=== PATIENT | male | born 1955 | race Caucasian/White ===

== ENCOUNTER 2016-07-31 08:22 | Day surgery (SDC) | payer OTHER ==
[2016-07-20 13:51] VITALS: BMI 39.0
--- NOTE | 2016-07-20 14:35 | PAT Medication Instructions ---
Service Date Jul 20, 2016. Current Home Medication List Aspirin (Aspirin Ec), 81 MG PO HS Ibuprofen (Ibuprofen), 600 MG PO Q6 PRN for Pain Lisinopril (Zestril), 20 MG PO QAM Simvastatin (Zocor), 20 MG PO QPM Medication Instructions For Your Scheduled Surgery - Hold the following medications 7-10 days prior to surgery per surgeon instructions: Aspirin (Aspirin Ec), 81 MG PO HS Ibuprofen (Ibuprofen), 600 MG PO Q6 PRN for Pain - Hold the following medications the morning of surgery: Lisinopril (Zestril), 20 MG PO QAM - Take the following medications as scheduled the night before surgery: Simvastatin (Zocor), 20 MG PO QPM If you have any questions please call us at [phone] or [phone] ( Rajwinder) or [phone]
--- NOTE | 2016-07-20 15:13 | DIAGNOSTIC IMAGING REPORT ---
TWO VIEW CHEST CLINICAL HISTORY: Preoperative examination. FINDINGS: PA and lateral chest radiographs are obtained. No prior studies are available for comparison at the time of dictation. The cardiomediastinal silhouette is unremarkable. Nonspecific interstitial thickening is identified. There is no airspace consolidation or pleural effusion. There is no pneumothorax. The skeletal structures appear osteopenic. The bony thorax appears intact. IMPRESSION: No active disease in the chest. Electronically signed by: Bayron Santiago M.D. 07/20/2016 3:11 PM Dictated Date/Time: 07/20/2016 3:11 PM
[2016-07-20 15:34] LABS: BASO % 0.5 %; BASO ABS # 0.05 K/uL (0-0.2); COMPLETE YES; EOS % 1.5 %; HEMATOCRIT 44.7 % (42-52); IG% 0.4 %; LYMPH % 35.6 %; LYMPH ABS # 3.42 K/uL (1.2-3.4); MEAN CELL VOLUME 85.3 fL (80-100); MEAN CORPUSCULAR HEMOGLOBIN 30.7 pg (25-34); MEAN PLATELET VOLUME 9.2 fL (7.4-10.4); MONO % 5.9 %; NEUT % 56.1 %; PLATELET COUNT 241 K/uL (130-400); RED BLOOD COUNT 5.24 M/uL (4.7-6.1); WHITE BLOOD COUNT 9.62 K/uL (4.8-10.8)
[2016-07-20 16:27] LABS: URINE APPEARANCE CLEAR (CLEAR); URINE BILIRUBIN NEG (NEG); URINE COLOR YELLOW; URINE NITRITE NEG (NEG); URINE PH 5.5 (4.5-7.5); UROBILINOGEN NEG (NEG)
[2016-07-20 16:28] LABS: MANUAL MICROSCOPIC REQUIRED? NO; REVIEW REQ? NO
[2016-07-20 16:45] LABS: BUN/CREATININE RATIO 10.6 (10-20); CALCIUM 9.6 mg/dl (8.5-10.1); CREATININE 0.97 mg/dl (0.60-1.40); POTASSIUM 4.4 mmol/L (3.5-5.1)
[~2016-07-31] VITALS: Ht 182.9 cm; Wt 132.3 kg
[~2016-07-31 08:22] MED LIST: ASPI81TA28 PO; CEFAZOLIN 3000 MG/65 ML D5W IV SCH; LACTATED RINGER'S 1000ML 1,000 ML IV SCH; LISI-725 PO; MTR/600 PO; SIMV20TA2 PO
[2016-07-31 08:51] VITALS: BP 164/76; PULSE 95; TEMP 37.2; O2SAT 96; Ht 182.9 cm; Wt 132.3 kg
[2016-07-31] MEDS ORDERED: LIDOCAINE HCL 2% 2 ML VIAL (20MG/ML) ONE (09:55)
[2016-07-31] MEDS ORDERED: MIDAZOLAM HCL 1 MG/ML 2ML VIAL ONE (09:55)
[2016-07-31] MEDS ORDERED: PROPOFOL IV EMULSION 10 MG/ML 20 ML VIAL IV ONE (09:55)
[2016-07-31] MEDS ORDERED: FENTANYL CITRATE INJ 50 MCG/1 ML 2 ML VIAL ONE ×2 (09:55→10:33)
--- NOTE | 2016-07-31 10:38 | History & Physical Bridge Note ---
H&P Re-Evaluation Bridge Note: I have examined the patient, reviewed the History & Physical and in the interval since the performance of the History & Physical I have noted the following changes of clinical significance: No changes noted
[2016-07-31] MEDS ORDERED: LIDOCAINE HCL 1% 20 ML VIAL ONE (11:05)
[2016-07-31] MEDS ORDERED: ONDANSETRON INJ 2 MG/ML 2 ML VIAL ONE (11:15)
[2016-07-31] MEDS ORDERED: DEXAMETHASONE SOD INJ 4 MG/ML VIAL ONE (11:15)
--- NOTE | 2016-07-31 12:11 | [facility] Post Operative Brief Note ---
Immediate Operative Summary Operative Date Jul 31, 2016. Pre-Operative Diagnosis phimosis Post-Operative Diagnosis phimosis Procedure(s) Performed Circumcision Surgeon Dr. Maxwell [employer] Operator Surgeon(s) none Estimated Blood Loss 3 ML Findings phimosis Specimens A: foreskin Drains none Anesthesia general Complication(s) None Disposition Recovery Room / PACU
[2016-07-31] MEDS ORDERED: OXYC-57 PO (12:12)
--- NOTE | 2016-07-31 12:13 | Discharge Instructions ---
Discharge Instructions Date of Service Jul 31, 2016. Visit Reason for Visit: Phimosis Discharge Discharge Diagnosis / Problem: phimosis Discharge Goals Goal(s): Therapeutic intervention Activity Recommendations Activity Limitations: resume your previous activity (take it easy today) Shower/Bathe: tomorrow Anesthesia . Post Anesthesia Instructions: If you have had General Anesthesia or IV Sedation: * Do not drive today. * Resume driving when surgeon permits. * Do not make important decisions or sign legal documents today. * Call surgeon for: 1. Temperature elevations greater than 101 degrees F. 2. Uncontrollable pain. 3. Excessive bleeding. 4. Persistent nausea and vomiting. 5. Medication intolerance (nausea, vomiting or rash). * For nausea and vomiting use only clear liquids such as: tea, soda, bouillon until nausea subsides, then gradually increase diet as tolerated. * If you have any concerns or questions, call your surgeon's office. If physician is unavailable and it is an emergency, call 911 or go to the nearest emergency room. . Diet Recommendations Recommended Home Diet: resume previous diet Procedures Procedures Performed: Circumcision Pending Studies Studies pending at discharge: no Medical Emergencies . Who to Call and When: Medical Emergencies: If at any time you feel your situation is an emergency, please call 911 immediately. . Non-Emergent Contact Non-Emergency issues call your: Urologist . . "Provider Documentation" section prepared by Pj Maxwell. [place] Drug Monitoring Program Search Results: patient reviewed within database
[2016-07-31] MEDS ORDERED: HYDROmorphone INJ 1 MG/ML SYR ONE ×2 (12:26→12:36)
[2016-07-31] MEDS ORDERED: FLUMAZENIL 0.1 MG/1 ML 10 ML VIAL IV PRN (12:30)
[2016-07-31] MEDS ORDERED: ONDANSETRON INJ 2 MG/ML 2 ML VIAL IV PRN (12:30)
[2016-07-31] MEDS ORDERED: NALOXONE HCL 0.4 MG/1 ML VIAL/CARP IV PRN (12:30)
[2016-07-31] MEDS ORDERED: ATROPINE SULFATE 0.1 MG/ML 5ML SYR IV PRN (12:30)
[2016-07-31] MEDS ORDERED: LABETALOL HCL IV 5 MG/ML 20ML IV PRN (12:30)
[2016-07-31] MEDS ORDERED: EpHEDrine SULFATE INJ 50 MG/ML AMP IV PRN (12:30)
[2016-07-31] MEDS ORDERED: HYDROmorphone INJ 1 MG/ML SYR IV PRN (12:30)
[2016-07-31] MEDS ORDERED: PROMETHAZINE HCL INJ 12.5 MG in SODIUM CHLORIDE 0.9% 50ML 50 ML IV PRN (12:30)
[2016-07-31] MEDS ORDERED: KETOROLAC TROMETHAMINE 30 MG/ML VIAL IV STA (13:01)
[2016-07-31] MEDS ORDERED: KETOROLAC TROMETHAMINE 30 MG/ML VIAL ONE (13:07)
--- NOTE | 2016-07-31 13:28 | Anesthesiology Progress Note ---
Anesthesia Post Op Note Date & Time Jul 31, 2016 at 13:27 Vital Signs Pain Intensity: 8 Vital Signs Past 12 Hours Date Time Temp Pulse Resp B/P Pulse Ox O2 Delivery O2 Flow Rate FiO2 07/31/16 13:24 36.5 07/31/16 13:15 80 18 122/77 96 Room Air 07/31/16 13:05 78 18 131/84 95 Room Air 07/31/16 12:55 84 18 135/89 96 Room Air 07/31/16 12:45 86 16 127/82 97 Room Air 07/31/16 12:35 80 16 125/79 95 Room Air 07/31/16 12:25 81 16 124/80 100 Mask 10 07/31/16 12:15 91 16 123/80 100 Mask 10 07/31/16 12:06 37.3 96 16 131/85 100 Mask 10 07/31/16 08:51 37.2 95 20 164/76 96 Room Air Notes Mental Status: alert / awake / arousable, participated in evaluation Pt Amnestic to Procedure: Yes Nausea / Vomiting: adequately controlled Pain: adequately controlled Airway Patency, RR, SpO2: stable & adequate BP & HR: stable & adequate Hydration State: stable & adequate Anesthetic Complications: no major complications apparent
[2016-07-31 13:30] VITALS: BP 161/82; PULSE 82; TEMP 36.9; O2SAT 96
[2016-07-31] MEDS: OXYCODONE/ACETAMINOPHEN 5-325 TAB PO PRN ×2 (13:54→14:18)
[2016-07-31 14:00] VITALS: BP 171/80; PULSE 78; TEMP 36.9; O2SAT 94
[2016-07-31 14:30] VITALS: BP 198/99; PULSE 76; TEMP 36.6; O2SAT 96
[2016-07-31 14:45] VITALS: BP 187/88
[2016-07-31 15:15] VITALS: BP 170/78; PULSE 80; TEMP 36.6; O2SAT 98
[2016-07-31] MEDS ORDERED: ONDANSETRON INJ 2 MG/ML 2 ML VIAL IV STA (15:21)
--- NOTE | 2016-08-01 00:11 | OPERATIVE REPORT ---
DATE OF OPERATION: 07/31/2016 PREOPERATIVE DIAGNOSIS: Phimosis. POSTOPERATIVE DIAGNOSIS: Same. PROCEDURE: Circumcision. FINDINGS: Phimotic foreskin. SURGEON: Dr. Maxwell. ANESTHESIA: General. DRAINS: None. COMPLICATIONS: None. SPECIMENS: Foreskin. INDICATIONS: The patient is a 61-year-old white male who over the last few years has been developing a phimosis and is now starting to have troubles retracting the foreskin. He tried steroid cream for a month, but this was unsuccessful. He is now being brought in for a circumcision. PROCEDURE IN DETAIL: After the induction of an adequate general anesthetic and appropriate timeout, the patient's lower abdomen, genitalia, phallus were scrubbed and painted with Betadine paint and draped in a sterile fashion. The outer prepucial skin was then marked along the yeung circumferentially. The foreskin was then retracted and the inner preputial skin was marked about 5 mm proximal to the coronal sulcus. The foreskin was then retracted. The outer prepucial skin was then sharply incised circumferentially for 360 degrees. Foreskin was then retracted again and the inner prepucial skin was likewise incised. The 2 incisions were then connected in the midline and the skin was dissected off the shaft of the penis. Any bleeding points were then elevated well off the shaft and electrocoagulated. Two of the larger vessels were ligated with a 3-0 Vicryl. After making sure all bleeding was controlled, the 4 quadrant stitches of 3-0 chromic were placed between the 2 cut edges. Then using 4-0 chromic in between these stitches, the wound was closed circumferentially. After completing this, the wound was reinspected. There was no bleeding. The phallus was then washed and dried. Xeroform gauze and a dry sterile dressing were applied. All needle, sponge and instrument counts were correct at the end of the case. The patient tolerated the procedure well and went to the recovery room in stable condition. I attest to the content of the Intraoperative Record and any orders documented therein. Any exceptio ns are noted below.
== END 2016-07-31 15:45 | disposition home or self-care (01) ==
LOC: C.ACU 08:22
PROVIDERS: ATTEND Urology
DX: N47.1 Phimosis (principal); I10 Essential (primary) hypertension; E78.5 Hyperlipidemia, unspecified; Z98.890 Other specified postprocedural states; E66.9 Obesity, unspecified; Z68.39 Body mass index [BMI] 39.0-39.9, adult; Z87.891 Personal history of nicotine dependence; Z84.1 Family history of disorders of kidney and ureter; Z83.3 Family history of diabetes mellitus; Z80.43 Family history of malignant neoplasm of testis

== ENCOUNTER 2017-05-24 19:24 | Emergency (ER) | payer OTHER ==
[~2017-05-24] VITALS: Ht 182.9 cm; Wt 129.9 kg
[~2017-05-24 19:24] MED LIST changes: -CEFAZOLIN 3000 MG/65 ML D5W IV SCH; -LACTATED RINGER'S 1000ML 1,000 ML IV SCH
[2017-05-24 19:40] VITALS: TEMP 36.8; Ht 182.9 cm; Wt 129.9 kg
[2017-05-24] MEDS ORDERED: HYDROCODONE/ACETAMIN 5/325MG TAB PO STA (19:58)
[2017-05-24] MEDS ORDERED: COEN1CAP37 PO (20:19)
[2017-05-24] MEDS ORDERED: GLC/500 PO (20:19)
--- NOTE | 2017-05-24 20:33 | DIAGNOSTIC IMAGING REPORT ---
L SHOULDER MIN 2 VIEWS ROUTINE CLINICAL HISTORY: Left shoulder pain following fall. COMPARISON: None FINDINGS: Alignment of the left shoulder is anatomic. There is no acute fracture. There is moderate osteoarthritis of the left acromioclavicular joint and mild osteoarthritis of the left glenohumeral joint. IMPRESSION: 1. No acute fracture or dislocation of the left shoulder. 2. Moderate osteoarthritis of the left acromioclavicular joint and mild osteoarthritis of the left glenohumeral joint. Electronically signed by: Kana Tavares M.D. 05/24/2017 8:32 PM Dictated Date/Time: 05/24/2017 8:31 PM
--- NOTE | 2017-05-24 20:38 | EMERGENCY ROOM VISIT NOTE ---
History First contact with patient: 19:49 Chief Complaint: SHOULDER PAIN Stated Complaint: L SHOULDER, FELL DOWN STEPS History of Present Illness The patient is a 62 year old male who presents to the Emergency Room with complaints of "left shoulder pain, fell downstairs". The patient states that earlier today around 6 PM he was descending a flight of steps, noting that he was wearing slippery socks, when he fell backwards landing on his left elbow causing pain in his left shoulder and then he slid down the steps on his backside. He notes the only pain is in his left shoulder in the anterior portion of the shoulder joint. He rates the pain as a 4/10. Review of Systems A complete 6-point Review of Systems was discussed with the patient, with pertinent positives and negatives listed in the History of Present Illness. All remaining Review of Systems questions can be considered negative unless otherwise specified. Past Medical/Surgical History No pertinent Family History Pt. lives locally Social History Smoking Status: Former Smoker Current/Historical Medications Scheduled Aspirin (Aspirin Ec), 81 MG PO HS Coenzyme Q10 (Ubidecarenone) (Co Q-10), 200 MG PO DAILY Lisinopril (Zestril), 20 MG PO QAM Metformin Hcl (Glucophage), 500 MG PO BID Simvastatin (Zocor), 20 MG PO QPM Scheduled PRN Hydrocodone/Acetaminophen 5MG/325MG ([place] 5MG/325MG), 1-2 TABLET PO Q6 PRN for Pain Ibuprofen (Ibuprofen), 600 MG PO Q8 PRN for Pain Physical Exam Vital Signs Date Time Temp Pulse Resp B/P (MAP) Pulse Ox O2 Delivery O2 Flow Rate FiO2 05/24/17 21:11 78 20 144/79 98 05/24/17 19:40 36.8 98 16 148/93 97 Room Air Physical Exam VITAL SIGNS - Vital signs and nursing notes were reviewed. Stable. GENERAL - 62-year-old male appearing his stated age who is in no acute distress. Communicates well with provider and answers questions appropriately. SKIN - Without rashes. Skin overlying the left shoulder is unremarkable. HEAD - NC/AT. NECK - no C-spine tenderness. EXTREMITIES - No clubbing or peripheral cyanosis. No pretibial edema present. +5 /5 strength noted in UE/LE bilaterally. There is tenderness to palpation overlying the anterior most aspect of the patient's left shoulder joint. There is decreased external rotation as well as abduction. The patient is unable to externally rotate or abduct secondary to pain. He is most comfortable in a 90 elbow flexion and with the arm resting crossed his midsection. No other tenderness of the extremity or neck. He is neurovascularly intact in the distal left upper extremity. Medical Decision & Procedures ER Provider Diagnostic Interpretation: L SHOULDER MIN 2 VIEWS ROUTINE CLINICAL HISTORY: Left shoulder pain following fall. COMPARISON: None FINDINGS: Alignment of the left shoulder is anatomic. There is no acute fracture. There is moderate osteoarthritis of the left acromioclavicular joint and mild osteoarthritis of the left glenohumeral joint. IMPRESSION: 1. No acute fracture or dislocation of the left shoulder. 2. Moderate osteoarthritis of the left acromioclavicular joint and mild osteoarthritis of the left glenohumeral joint. Electronically signed by: Kana Tavares M.D. 05/24/2017 8:32 PM Dictated Date/Time: 05/24/2017 8:31 PM Medications Administered Medications (Trade) Dose Ordered Sig/Denice Route Start Time Stop Time Status Last Admin Dose Admin Acetaminophen/ Hydrocodone Bitart ([place] 5/325 Tab) 1 tab NOW STAT PO 05/24/17 19:58 05/24/17 19:59 DC 05/24/17 20:14 1 TAB Acetaminophen/ Hydrocodone Bitart ([place] 5/325mg Home Pack) 1 homepack UD STAT PO 05/24/17 20:48 05/24/17 20:50 DC 05/24/17 21:08 1 HOMEPACK Medical Decision Patient was seen and evaluated as above. He presents to us today with left shoulder pain status post fall. He is nontoxic on exam, and is hemodynamically stable. There is pinpoint tenderness in the left anterior shoulder joint. X- ray was obtained. Results as above. There is no acute fracture or dislocation. I suspect he likely is experiencing a rotator cuff injury. Although his history is concerning for that of an impaction type fracture, no fracture seen on his radiographs. There is no evidence of dislocation. On exam there is no evidence of dislocation. I suspect that an arm sling is most appropriate with close follow-up with orthopedics of his pain persists. He was given a [place] tablet here with a small prescription from home. He was educated to not take this with Tylenol. He was educated upon management, educated upon worrisome symptoms in which to return, had questions answered prior to discharge , and was discharged home in good condition. No red flags in the [place] drug monitoring system. In the evaluation and treatment of this patient, the following differential diagnoses were considered: Shoulder Contusion, Shoulder Fracture, Shoulder Dislocation, Thoracic Outlet Syndrome, Adhesive Capsulitis, Rotator Cuff Tear, Proximal Clavicle Head Fracture, Apical Pneumonia, Pneumothorax, Hemothorax, or TB. Impression Primary Impression: Shoulder pain, left Additional Impression: Fall Departure Information Dispostion Home / Self-Care Condition GOOD Prescriptions Hydrocodone/Acetaminophen 5MG/325MG ([place] 5MG/325MG) Tab 1-2 TABLET PO Q6 Y for Pain, #15 TAB For Initial Treatment Prov: Demar Estrada PA-C 05/24/17 Referrals Bolivar Shi M.D. (PCP) Louie Kent M.D. Sherbondy, Paul S., M.D. Patient Instructions [facility] Additional Instructions You have been treated in the Emergency Department for Shoulder Pain. You have received pain medicine in the emergency department which impairs your ability to operate a vehicle. It is illegal for you to drive after receiving these medicines. You have been prescribed NORCO to be used for pain control. This is a narcotic medication. You cannot drive or consume alcohol while on this medicine. This medicine should only be used for pain that cannot be controlled with over-the- counter pain medicines. For pain control, you can use the following [id number] medicines: - Regular strength (325mg/tab) Tylenol (acetaminophen) 2 tabs every 4-6 hours as needed. Do not exceed 12 tablets in a 24 hour period. Avoid taking more than 3 grams (3000 mg) of Tylenol per day. This includes any other sources of acetaminophen you may take on a regular basis. - Regular strength (200 mg/tab) Advil (ibuprofen) 1-2 tabs every 4-6 hours as needed. Do not exceed a dose of 3200 mg per day. If this is a recent injury (<24 hrs), ice can be applied to the area of pain for the first 3 days to help decrease pain and inflammation. You have been provided the number for an Orthopaedic Surgeon. You should call this number as soon as possible to establish a follow-up visit from today's Emergency Department visit. Keep the shoulder brace/sling in place until evaluated by Orthopedics. Continue to perform range of motion exercises several times per day to help prevent the development of a "frozen shoulder". Return to the Emergency Department if your current symptoms worsen despite treatment course outlined above, or if you develop any of the following symptoms : intractable pain despite aforementioned treatment course or new onset of numbness or tingling of the arm. Problem Qualifiers
[2017-05-24] MEDS ORDERED: NORCO 5/325MG HOME PACK PO STA (20:48)
[2017-05-24] MEDS ORDERED: HYDR-5688 PO (20:50)
[2017-05-24 21:11] VITALS: BP 144/79; PULSE 78; O2SAT 98
== END 2017-05-24 21:12 | disposition home or self-care (01) ==
LOC: C.EDB 19:25 → C.EDD 21:12
DX: M25.512 Pain in left shoulder (principal); W10.9XXA Fall (on) (from) unspecified stairs and steps, initial encounter; Z79.82 Long term (current) use of aspirin; Z79.84 Long term (current) use of oral hypoglycemic drugs; Z87.891 Personal history of nicotine dependence